=== PATIENT | male | born 1965 | race Caucasian/White ===

== ENCOUNTER 2017-03-14 12:36 | Emergency (ER) | payer OTHER | END 2017-03-14 18:10 | disposition home or self-care (01) | LOC: ER1 12:36 | DX: S68.110A Complete traumatic metacarpophalangeal amputation of right index finger, initial encounter (principal); X58.XXXA Exposure to other specified factors, initial encounter; Y92.89 Other specified places as the place of occurrence of the external cause; I10 Essential (primary) hypertension; Z79.899 Other long term (current) drug therapy; Z23 Encounter for immunization | CPT/HCPCS: 73130; 90471; 90714; 96374; 99283; J0690 ==